=== PATIENT | female | born 1930 | race Caucasian/White ===

== ENCOUNTER 2018-10-14 16:24 | Inpatient (IN) | payer MEDICARE, BC | END 2018-10-17 14:45 | LOC: ER 16:24 → ORTHO 4S 10-15 15:00 | DX: M80.022A Age-related osteoporosis with current pathological fracture, left humerus, initial encounter for fracture (principal); S32.592A Other specified fracture of left pubis, initial encounter for closed fracture; S32.591A Other specified fracture of right pubis, initial encounter for closed fracture ==